=== PATIENT | male | born 1970 | race Caucasian/White ===

== ENCOUNTER 2017-02-04 17:06 | Emergency (ER) | payer SELFPAY ==
[2017-02-04] MEDS: fentaNYL CITRATE/PF 100 MCG/ 2ML AMP IVP ONE ×2 (17:20→17:41)
--- NOTE | 2017-02-04 18:42 | ED Physician Documentation ---
Lower Extremity Injury - HISTORIAN Historian: patient - HPI Stated Complaint: Left Tib/Fib pain Chief Complaint: Lower Extremity Injury Onset: minutes Where: home Context: fall, twist (left knee) Associated Symptoms:: unable to bear weight (left knee) Modifying Factors:: pain on movement (left knee) - ROS CONST: no problems CVS/RESP: none GI/: denies: nausea, vomiting MS/SKIN/LYMPH: none NEURO: denies: headache, head injury, anxiety - PAST HX Past History: cardiac (HTN), other (Asthma, HTN, IDDM, appendectomy, cholecystectomy) Allergies/Adverse Reactions: Allergies Allergy/AdvReac Type Severity Reaction Status Date / Time morphine Allergy Face Verified 02/04/17 17:45 Swelling NSAIDS (Non-Steroidal Allergy Face Verified 02/04/17 17:45 Anti-Inflamma Swelling Penicillins Allergy Rash Verified 02/04/17 17:45 Steroids AdvReac No Reaction Uncoded 02/04/17 17:45 Home Medications: Ambulatory Orders Medication Instructions Recorded Albuterol Sulfate [ProAir 1 puff INH Q6H PRN 02/04/17 RespiClick] Atenolol [Tenormin] 50 mg PO DAILY 02/04/17 Insulin Glargine,Hum.rec.anlog 60 units SUBCUT HS 02/04/17 [Lantus Solostar] Insulin Regular, Human [Humulin R] 20 units SUBCUT AC30 02/04/17 Lisinopril [Zestril] 40 mg PO DAILY 02/04/17 - SOCIAL HX Smoking History: non-smoker - FAMILY HX Family History: denies: none - VITAL SIGNS Vital Signs: Vital Signs Temp Pulse Resp BP Pulse Ox 98.6 F 89 20 159/92 98 02/04/17 19:03 02/04/17 19:03 02/04/17 19:03 02/04/17 19:03 02/04/17 19:03 - REVIEWED ASSESSMENTS Nursing Assessment Reviewed: Yes Vitals Reviewed: Yes Progress - Progress Progress: Patient c/o 06/18 pain - titrating Fentanyl IV; ice to left knee No fracture on xray, immobilizer placed, 2 po percocet given discussed follow up care and treatment plan. Strongly encouraged rest and elevation, ice. Patient verbalized understanding. Patient states pain has improved with immobilizer and medication. ED Results Lab/Radiology - Radiology Radiology Impressions: Left tibia fibula 2 views Date of Exam: February 04, 2017. History: 46/M PATIENT COMPLAINS OF SEVERE PAIN IN LEFT PROXIMAL TIB-FIB AND KNEE AFTER HYPER-EXTENDING KNEE/LEG IN A FALL X 1 HR AGO; NO PREVIOUS SURGERIES ; NO HX OF KNEE PROBLEMS (Hx) / FALL, SEVERE PAIN (DICOM Hx) / FALL, SEVERE PAIN (Pt comments) Findings: The left tibia and fibula are intact. The tibiotalar alignment is maintained. There is no evidence of dislocation. Calcifications are present in the soft tissues medial to the proximal tibia. This may be related to the medial collateral ligament. Consider followup MRI. Impression: No acute osseous abnormality. Calcifications medial to the proximal tibia that may be related to the medial collateral ligament. Consider followup MRI. Electronically signed on February 04, 2017 6:33:24 PM CDT by: Varsha Moreau - Orders Orders: ED Orders Category Date Time Status Apply ice to affected area NOW Care 02/04/17 17:29 Active Knee Immobilizer 1T Care 02/04/17 18:[address] IV Lock 1T Care 02/04/17 17:11 Active TIBIA & FIBULA 2 VIEW [RAD] Stat Exams 02/04/17 Completed fentaNYL CITRATE/PF [Duragesic] Med 02/04/17 17:11 Discontinued 50 mcg IVP NOW ONE fentaNYL CITRATE/PF [Duragesic] Med 02/04/17 17:29 Discontinued 50 mcg IVP NOW ONE oxyCODONE HCL/ACETAMINOPHEN [Percocet 5-325 mg Tablet] Med 02/04/17 18:38 Discontinued 2 each PO NOW ONE Lower Extremities Injury Phy - Physical Exam General Appearance: moderate distress Hips: bilateral hip: non-tender, normal inspection, normal range of motion, no evidence of injury Legs: bilateral: non-tender, normal inspection, normal range of motion, no evidence of injury Knees: right: non-tender, normal inspection, normal range of motion, left: bone tenderness, pain, soft tissue tenderness, bilateral: no evidence of injury Ankle: bilateral: non-tender, normal inspection, normal range of motion, no evidence of injury Ligaments: other (Pain on light palpation; cannot perform drawer test or check laxity - patient refuses) Gait: unable to bear weight Neuro/Vascular/Tendon: no vascular compromise, motor nml, sensation nml, ROM nml Resp/CVS: chest non-tender, breath sounds nml, heart sounds nml, no resp. distress, lungs clear, reg. rate & rhythm Abdomen: non-tender, pelvis stable Discharge Clincal Impression: Derangement, knee internal Qualifiers: Laterality: left Qualified Code(s): M23.92 - Unspecified internal derangement of left knee Referrals: Primary Doctor,No [Primary Care Provider] - 2 Days Additional Instructions: Knee immobilizer at all times, may remove to shower Crutches - no weight bearing to left leg. Rest, ice, elevation Follow up with orthopedics this week Home Medications: Ambulatory Orders Albuterol Sulfate [ProAir RespiClick] 1 puff INH Q6H PRN 02/04/17 Atenolol [Tenormin] 50 mg PO DAILY 02/04/17 Insulin Glargine,Hum.rec.anlog [Lantus Solostar] 60 units SUBCUT HS 02/04/17 Insulin Regular, Human [Humulin R] 20 units SUBCUT AC30 02/04/17 Lisinopril [Zestril] 40 mg PO DAILY 02/04/17 Condition: Stable Disposition: 01 HOME, SELF-CARE Decision to Admit: NO Decision Time: 18:45
[2017-02-04] MEDS: oxyCODONE/ACETAMINOPHEN 5/325 TABLET PO ONE (18:50)
[2017-02-04 19:30] VITALS: BP 159/92
--- NOTE | 2017-02-04 21:53 | Diagnostic Imaging Report ---
Name: CHADD ROYAL ~~ ~~ : 72 ~~ Acc #: [id number]~~ DOS : February 04, 2017 6:06:38 PM CDT ~~ Mod: CR ~~ Desc: LOWER EXTREMITY 1 of 1 PAMELA MEJIA ([employer]ACER) - ER~ [address] [id number] ~ ~ ~ ~ Report Submission Date: February 04, 2017 6:33:24 PM CDT Patient ~ Study Name: CHADD ROYAL ~ Date: February 04, 2017 6:06:38 PM CDT ~ Modality Type: CR Gender: M ~ Description: LOWER EXTREMITY : 72 ~ Institution: [facility] Physician: PAMELA MEJIA (SM[employer] ST[employer] FACER) - ER ~ ~ ~ ~ Left tibia fibula 2 views Date of Exam: February 04, 2017. History:~ 46/M PATIENT COMPLAINS OF SEVERE PAIN IN LEFT PROXIMAL TIB-FIB AND KNEE AFTER HYPER-EXTENDING KNEE/LEG IN A FALL X 1 HR AGO; NO PREVIOUS SURGERIES ; NO HX OF KNEE PROBLEMS (Hx) / FALL, SEVERE PAIN (DICOM Hx) / FALL, SEVERE PAIN (Pt comments) Findings: The left tibia and fibula are intact. The tibiotalar alignment is maintained. There is no evidence of dislocation. Calcifications are present in the soft tissues medial to the proximal tibia. This may be related to the medial collateral ligament. Consider followup MRI. Impression: No acute osseous abnormality. Calcifications medial to the proximal tibia that may be related to the medial collateral ligament. Consider followup MRI. ~ Electronically signed on February 04, 2017 6:33:24 PM CDT by: Varsha TINSLEY
== END 2017-02-04 19:02 | disposition home or self-care (01) ==
LOC: ED 17:06
DX: M23.92 Unspecified internal derangement of left knee (principal)
CPT/HCPCS: 73590; A9270; J3010; L1830; 96374; 99283; S1016